=== PATIENT | male | born 1985 ===

== ENCOUNTER → 2017-10-22 | Outpatient (CLI) | payer OTHER ==
[~2017-10-22] VITALS: Ht 152.4 cm; Wt 72.1 kg
== END | disposition home or self-care (01) ==
LOC: PPHC 16:20
DX: J06.9 Acute upper respiratory infection, unspecified (principal)

== ENCOUNTER → 2018-12-15 | Outpatient (CLI) | payer OTHER ==
[~2018-12-15] VITALS: Ht 157.5 cm; Wt 69.9 kg
== END | disposition home or self-care (01) ==
LOC: OFIC 805 12:22
DX: H61.23 Impacted cerumen, bilateral (principal); R09.82 Postnasal drip